=== PATIENT | female | born 1930 | race Caucasian/White ===

== ENCOUNTER → 2016-10-17 | Outpatient (CLI) | payer MEDICARE ==
[~2016-10-17] MED LIST: ACET325 PO; ASPI81TA82 PO; ATOR40TA PO; BISA10SU8 PR; CALCCHW25 PO; CHOL50006 PO; CYAN1000P SQ; FERR324T4 PO; LEVO.075 PO; LOTE0.5S EACH EYE; METO25 PO; MILKSUS5 PO; MS C15TA7 PO; PLAV75TA PO; POLY119S PO; PRED2.5T4 PO; TYLE3 PO
--- NOTE | 2016-10-17 11:04 | RADRPT ---
EXAM DATE/TIME: 10/17/2016 00:00 [place] COMPARISON: No previous studies available for comparison. INDICATIONS : Dysphagia since patient had some teeth removed 3 years ago. Patient feels like food is getting stuck. FLUORO TIME: 0.8 minutes IMAGE COUNT: 0 CONTRAST: Dose as prescribed by speech pathologist. MEDICAL HISTORY : None. SURGICAL HISTORY : None. ENCOUNTER: Initial ACUITY: >1 year PAIN SCORE: 0/10 LOCATION: esophagus. FINDINGS: The examination was performed in conjunction with speech pathology. CONCLUSION: Please refer to speech pathology report for complete discussion. Slava Chisholm MD on October 17, 2016 at 11:02 Board Certified Radiologist. This report was verified electronically.
== END ==
LOC: HRAD 09:42
PROVIDERS: ATTEND Family Medicine
DX: R13.10 Dysphagia, unspecified (principal)
CPT/HCPCS: 74230; 92611; G8996; G8997; G8998